=== PATIENT | female | born 1995 | race American Indian/Alaskan Native ===

== ENCOUNTER 2019-10-15 18:40 | Emergency (ER) | payer SELFPAY ==
[2019-10-15 18:56] VITALS: BP 128/78
[2019-10-15] MEDS ORDERED: HYDROcodone/ACETAMINOPHEN 5-325 MG TAB PO ONE (19:41)
--- NOTE | 2019-10-15 20:09 | Emergency Department Report ---
Abscess Boil HPI - HPI Chief Complaint: Skin/Abscess/Foreign Body Stated Complaint: BOIL ON BUTTOCK/PAIN Time Seen by Provider: 10/15/19 19:24 Duration: 3 Days Location: Other (Right buttocks) History: Yes Pain, Yes Previous History, No Fever, No Purulent Drainage, No Numbness, No Foreign Body, No Insect Bite HPI: 24-year-old -[place] female presents to the emergency room stating she has a boil on her right buttocks. Patient states has been there for 3 days. Patient has taken nothing for pain. Patient denies any fever chills no nausea no vomiting. Patient states she has not any allergies to any meds currently takes no meds. Patient reports she has a history of boils. Home Medications: Previous Rx's Medication Instructions Recorded Last Taken Type Acetaminophen/Codeine [Tylenol 1 tab PO Q6H PRN #12 tab 10/15/19 Unknown Rx /Codeine # 3 tab] Ibuprofen [Motrin 600 MG tab] 600 mg PO Q8H PRN #21 tablet 10/15/19 Unknown Rx cephALEXin [Keflex] 500 mg PO Q12HR 10 Days #20 cap 10/15/19 Unknown Rx Allergies/Adverse Reactions: Allergies Allergy/AdvReac Type Severity Reaction Status Date / Time No Known Allergies Allergy Unverified 10/15/19 19:41 ED Review of Systems ROS: Stated complaint: BOIL ON BUTTOCK/PAIN Other details as noted in HPI Comment: All other systems reviewed and negative Constitutional: denies: chills, fever Skin: lesions ED Past Medical Hx - Past Medical History Previous Medical History?: No - Surgical History Past Surgical History?: No - Social History Smoking Status: Current Every Day Smoker Substance Use Type: Marijuana - Medications Home Medications: Home Medications Medication Instructions Recorded Confirmed Last Taken Type Acetaminophen/Codeine [Tylenol 1 tab PO Q6H PRN #12 tab 10/15/19 Unknown Rx /Codeine # 3 tab] Ibuprofen [Motrin 600 MG tab] 600 mg PO Q8H PRN #21 tablet 10/15/19 Unknown Rx cephALEXin [Keflex] 500 mg PO Q12HR 10 Days #20 cap 10/15/19 Unknown Rx ED Abscess Boil Physical Exam - Exam General: Vital signs noted. No distress. Alert and acting appropriately. Size: 1 cm Exam: Yes Tenderness, Yes Surrounding Cellulites/Erythema, Yes Normal Neurologic Exam, Yes Normal Circulation, No Fluctuance, No Lymphangitis, No Crepitation, No Heart Murmur ED Course Vital Signs 10/15/19 18:55 Temperature 98.6 F Pulse Rate 86 Respiratory 18 Rate Blood Pressure 128/78 [Right] O2 Sat by Pulse 100 Oximetry Critical care attestation.: If time is entered above; I have spent that time in minutes in the direct care of this critically ill patient, excluding procedure time. ED Medical Decision Making - Medical Decision Making 24-year-old -[place] female presents to the emergency room stating she has a boil on her right buttocks. Patient states has been there for 3 days. Patient has taken nothing for pain. Patient denies any fever chills no nausea no vomiting. Patient states she has not any allergies to any meds currently takes no meds. Patient reports she has a history of boils. Patient be placed on Keflex Tylenol 3 and ibuprofen. Instructed patient to do warm hot soaks with Epson salt complete antibiotics and follow-up with her primary care provider. Patient verbalized understanding ED Disposition Clinical Impression: Cellulitis and abscess of buttock Disposition: [id number] TO HOME OR SELFCARE Is pt being admited?: No Does the pt Need Aspirin: No Condition: Stable Instructions: Cellulitis (ED), Furunculosis and Carbunculosis (ED) Additional Instructions: Complete antibiotics as prescribed. Take pain medication as needed. Do not operate heavy machinery while taking Tylenol 3. Do warm soaks with Epson salt. Follow-up with your primary care provider if your symptoms persist or gets worse. Prescriptions: cephALEXin [Keflex] 500 mg PO Q12HR 10 Days #20 cap Ibuprofen [Motrin 600 MG tab] 600 mg PO Q8H PRN #21 tablet PRN Reason: Pain Acetaminophen/Codeine [Tylenol /Codeine # 3 tab] 1 tab PO Q6H PRN #12 tab PRN Reason: Pain , Severe (7-10) Referrals: PRIMARY CARE, [Primary Care Provider] - 3-5 Days [facility] [Provider Group] - 3-5 Days Forms: Work/School Release Form(ED)
== END 2019-10-15 20:21 | disposition home or self-care (01) ==
LOC: ED 18:40
DX: L03.317 Cellulitis of buttock (principal); L02.31 Cutaneous abscess of buttock; F17.200 Nicotine dependence, unspecified, uncomplicated; F12.10 Cannabis abuse, uncomplicated; Z79.899 Other long term (current) drug therapy
CPT/HCPCS: 99282